=== PATIENT | male | born 2000 | race Hispanic/Latino ===

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

== ENCOUNTER 2023-01-29 23:49 | Emergency (ER) | payer BC, OTHER ==
[~2023-01-29 23:49] MED LIST: Dextrose 5% in Water 250 ML ONE; Sodium Chloride 0.9% 2,000 ML ONE
[2023-01-30] MEDS ORDERED: Acetaminophen 500 MG TAB ONE (00:33)
== END 2023-01-30 01:17 | disposition left against medical advice (07) ==
LOC: ERS 23:49
DX: Z53.21 Procedure and treatment not carried out due to patient leaving prior to being seen by health care provider (principal)

== ENCOUNTER 2024-05-21 20:18 | Emergency (ER) | payer BC, OTHER ==
[~2024-05-21 20:18] MED LIST changes: -Dextrose 5% in Water 250 ML ONE; +Iopamidol-370 76% 500 ML MDV (1 ML CHARGE) ONE; -Sodium Chloride 0.9% 2,000 ML ONE
[2024-05-21] MEDS ORDERED: Morphine 4 MG/ML VIAL ONE (21:03)
[2024-05-21] MEDS ORDERED: Boostrix 0.5 ML (Tdap) VIAL (>/=7 yrs of age) ONE (21:03)
[2024-05-21 21:31] LABS: #Basophils 0.05 10x3/uL (0.0-0.2); %Basophils 0.5 % (0.0-1.0); %Lymphocytes 25.8 % (21.0-51.0); %Monocytes 11.5 % (0.0-10.0); Hematocrit 44.2 % (42.0-52.0); Hemoglobin 15.3 g/dL (14.0-18.0); Mean Corpuscular HGB CONC 34.6 g/dL (32.0-36.0); Mean Corpuscular Hemoglobin 31.8 pg (27.0-31.0); Mean Corpuscular Volume 91.9 fL (78.0-98.0); Mean Platelet Volume 11.5 fL (7.4-10.4); Platelet Count 164 10x3/uL (130-400); RBC Distribution Width 12.7 % (11.5-14.5); Red Blood Cell (RBC) Count 4.81 mill/uL (4.70-6.10)
[2024-05-21 21:44] LABS: PTT 26.4 sec (22.9-36.1); Prothrombin Time 12.7 sec (12.0-14.7)
[2024-05-21 21:46] LABS: ALT (SGPT) 29 U/L (8-55); AST (SGOT) 68 U/L (5-34); Albumin 4.8 g/dL (3.5-5.0); Alkaline Phosphatase 101 U/L (40-110); Anion Gap 15 mmol/L (10-20); BUN (Urea Nitrogen) 12 mg/dL (8.9-20.6); Bilirubin, Total 0.7 mg/dL (0.2-1.2); Calc. Creatinine Clearance 0 mL/min (70-130); Calcium 9.6 mg/dL (7.8-10.44); Carbon Dioxide 23 mmol/L (22-29); Chloride 108 mmol/L (98-107); Estimated GFR 104; Globulin 3.3 g/dL (2.4-3.5); Glucose 82 mg/dL (70-105); Magnesium 2.2 mg/dL (1.6-2.6); Potassium 3.4 mmol/L (3.5-5.1); Protein, Total 8.1 g/dL (6.0-8.3); Sodium 143 mmol/L (136-145)
== END 2024-05-21 23:00 | disposition home or self-care (01) ==
LOC: ERS 20:18
DX: S01.81XA Laceration without foreign body of other part of head, initial encounter (principal); X58.XXXA Exposure to other specified factors, initial encounter; Y93.69 Activity, other involving other sports and athletics played as a team or group; Z23 Encounter for immunization
CPT/HCPCS: 12011; 36415; 70450; 70486; 71260; 72125; 74177; 80053; 83735; 85025; 85610; 85730; 90471; 90715; 96374; J2270; Q9967